=== PATIENT | male | born 2000 | race Caucasian/White ===

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

== ENCOUNTER 2019-10-05 13:06 | Emergency (ER) | payer BC, SELFPAY ==
--- NOTE | 2019-10-05 14:03 | EDPHYS ---
Physician Documentation [facility] Name: Michael Sharif Age: 19 yrs Sex: Male : 2000 Arrival Date: 10/05/2019 Time: 13:08 Bed 13 Private MD: Simona Walker ED Physician Marin De Leon HPI: 10/04 13:55 This 19 yrs old Male presents to ER via Ambulatory with complaints of rina Nausea/Vomiting, lightheaded. 13:55 The patient presents to the emergency department with nausea, vomiting, that is rina intermittent. Onset: The symptoms/episode began/occurred this morning. Possible causes: unknown. The symptoms are aggravated by nothing. The symptoms are alleviated by nothing. 13:55 The patient presents with pain, that is acute. The complaints affect the left ear. rina Modifying factors: The symptoms are alleviated by nothing, the symptoms are aggravated by nothing. Associated signs and symptoms: The patient has no apparent associated signs or symptoms. Severity of symptoms: At their worst the symptoms were mild in the emergency department the symptoms have improved moderately. The patient has experienced similar episodes in the past, a few times. Historical: - Allergies: 13:28 No Known Allergies; ss - Home Meds: 13:28 None [Active]; ss - PMHx: 13:28 None; ss - PSHx: 13:28 None; ss - Immunization history:: Adult Immunizations up to date. - Social history:: Smoking status: Patient denies any tobacco usage or history of. - Family history:: not pertinent. ROS: 13:55 Constitutional: Negative for fever, chills, and weight loss, Eyes: Negative for injury, rina pain, redness, and discharge, Neck: Negative for injury, pain, and swelling, Cardiovascular: Negative for chest pain, palpitations, and edema, Respiratory: Negative for shortness of breath, cough, wheezing, and pleuritic chest pain. 13:55 Back: Negative for injury and pain, : Negative for injury, bleeding, discharge, and swelling, MS/Extremity: Negative for injury and deformity, Skin: Negative for injury, rash, and discoloration, Neuro: Negative for headache, weakness, numbness, tingling, and seizure, Psych: Negative for depression, anxiety, suicide ideation, homicidal ideation, and hallucinations, Allergy/Immunology: Negative for hives, rash, and allergies, Endocrine: Negative for neck swelling, polydipsia, polyuria, polyphagia, and marked weight changes, Hematologic/Lymphatic: Negative for swollen nodes, abnormal bleeding, and unusual bruising. 13:55 ENT: Positive for ear pain. 13:55 Abdomen/GI: Positive for nausea and vomiting. Exam: 13:55 Constitutional: This is a well developed, well nourished patient who is awake, alert, rina and in no acute distress. Head/Face: Normocephalic, atraumatic. Eyes: Pupils equal round and reactive to light, extra-ocular motions intact. Lids and lashes normal. Conjunctiva and sclera are non-icteric and not injected. Cornea within normal limits. Periorbital areas with no swelling, redness, or edema. ENT: Nares patent. No nasal discharge, no septal abnormalities noted. Tympanic membranes are normal and external auditory canals are clear. Oropharynx with no redness, swelling, or masses, exudates, or evidence of obstruction, uvula midline. Mucous membranes moist. Neck: Trachea midline, no thyromegaly or masses palpated, and no cervical lymphadenopathy. Supple, full range of motion without nuchal rigidity, or vertebral point tenderness. No Meningismus. Chest/axilla: Normal chest wall appearance and motion. Nontender with no deformity. No lesions are appreciated. Cardiovascular: Regular rate and rhythm with a normal S1 and S2. No gallops, murmurs, or rubs. Normal PMI, no JVD. No pulse deficits. Respiratory: Lungs have equal breath sounds bilaterally, clear to auscultation and percussion. No rales, rhonchi or wheezes noted. No increased work of breathing, no retractions or nasal flaring. Abdomen/GI: Soft, non-tender, with normal bowel sounds. No distension or tympany. No guarding or rebound. No evidence of tenderness throughout. Back: No spinal tenderness. No costovertebral tenderness. Full range of motion. Skin: Warm, dry with normal turgor. Normal color with no rashes, no lesions, and no evidence of cellulitis. MS/ Extremity: Pulses equal, no cyanosis. Neurovascular intact. Full, normal range of motion. Neuro: Awake and alert, GCS 15, oriented to person, place, time, and situation. Cranial nerves II-XII grossly intact. Motor strength 5/5 in all extremities. Sensory grossly intact. Cerebellar exam normal. Normal gait. Psych: Awake, alert, with orientation to person, place and time. Behavior, mood, and affect are within normal limits. 13:55 ENT: TM's: bulging, is not appreciated, dullness, on the left, erythema, is not appreciated, fluid levels, is not appreciated, hemotympanum, is not appreciated, loss of bony landmarks, is not appreciated. 13:55 Neck: ROM/movement: is normal, no acute changes, pain, is not appreciated, limited range of motion, is not appreciated. Vital Signs: 13:25 BP 129 / 78; Pulse 87; Resp 17; Temp 98.2(TE); Pulse Ox 100% on R/A; Height 5 ft. 9 in. ss (175.26 cm); Pain 6/10; MDM: 13:35 Patient medically screened. rina 13:59 Differential diagnosis: otitis media, otitis externa, ruptured TM, foreign body, acute rina otalgia, cerumen impaction, Nonspecific abd pain, gastritis, viral gastroenteritis, gastroenteritis. Data reviewed: vital signs, nurses notes. Data interpreted: library monitor: not applicable for this patient encounter. Pulse oximetry: on room air is 100 %. Test interpretation: by ED physician or midlevel provider: not applicable. Counseling: I had a detailed discussion with the patient and/or guardian regarding: the historical points, exam findings, and any diagnostic results supporting the discharge/admit diagnosis, the need for outpatient follow up. ED course: non toxic, feeling better, will give 2 days off, zofran odt given, return if sym increase or persist. Administered Medications: No medications were administered Disposition: 10/05/19 14:02 Discharged to Home. Impression: Vomiting. - Condition is Stable. - Discharge Instructions: Nausea and Vomiting, Adult, Nausea and Vomiting, Adult, [id number]. - Prescriptions for Zofran 4 mg Oral Tablet - take 1 tablet by ORAL route every 12 hours As needed; 20 tablet. - Work release form, Medication Reconciliation Form, Thank You Letter, Antibiotic Education, Prescription Opioid Use form. - Follow up: Simona Walker MD; When: 2 - 3 days; Reason: Recheck today's complaints, Continuance of care, Re-evaluation by your physician. Follow up: Private Physician; When: 2 - 3 days; Reason: Recheck today's complaints, Re-evaluation by your physician. - Problem is new. - Symptoms have improved. Signatures: Marin De Leon MD MD cha Smirch, Shelby, RN RN Snow Eller RN RN vc Corrections: (The following items were deleted from the chart) 14:22 14:02 10/05/2019 14:02 Discharged to Home. Impression: Vomiting. Condition is Stable. vc Forms are Medication Reconciliation Form, Thank You Letter, Antibiotic Education, Prescription Opioid Use. Follow up: Simona Walker; When: 2 - 3 days; Reason: Recheck today's complaints, Continuance of care, Re-evaluation by your physician. Follow up: Private Physician; When: 2 - 3 days; Reason: Recheck today's complaints, Re-evaluation by your physician. Problem is new. Symptoms have improved. rina
--- NOTE | 2019-10-05 14:03 | ER ---
Nurse's Notes [facility] Name: Michael Sharif Age: 19 yrs Sex: Male : 2000 Arrival Date: 10/05/2019 Time: 13:08 Bed 13 Private MD: Simona Walker Diagnosis: Vomiting Presentation: 10/04 13:25 Chief complaint: Patient states: "I woke up feeling like crap. I had a headache. My ss stomach was hurting. I'm nauseous. I also feel like I have an earache. I tried calling into work, but they said they were short handed and I needed to come in anyway." Pt reports he feels better, but he still has a headache and needs a work note to return to work. Coronavirus screen: Patient denies a cough. Patient denies shortness of breath or difficulty breathing. Patient denies measured and/or subjective temperature greater than 100.4F prior to today's visit. Patient denies travel on a cruise ship or to a country the [facility] currently lists as an affected area. Patient denies contact with known and/or suspected case of COVID-19. Ebola Screen: Patient denies exposure to infectious person. Patient denies travel to an Ebola-affected area in the 21 days before illness onset. Initial Sepsis Screen: Does the patient meet any 2 criteria? No. Patient's initial sepsis screen is negative. Does the patient have a suspected source of infection? No. Patient's initial sepsis screen is negative. Risk Assessment: Do you want to hurt yourself or someone else? Patient reports no desire to harm self or others. Onset of symptoms was October 05, 2019. 13:25 Method Of Arrival: Ambulatory ss 13:25 Acuity: ROSALIND 4 ss Triage Assessment: 14:04 General: Appears in no apparent distress. Behavior is calm, cooperative, appropriate vc for age. Pain: Complains of pain in left ear. GI: Reports nausea, vomiting. Historical: - Allergies: 13:28 No Known Allergies; ss - Home Meds: 13:28 None [Active]; ss - PMHx: 13:28 None; ss - PSHx: 13:28 None; ss - Immunization history:: Adult Immunizations up to date. - Social history:: Smoking status: Patient denies any tobacco usage or history of. - Family history:: not pertinent. Screenin:49 Abuse screen: Denies threats or abuse. Nutritional screening: No deficits noted. ll1 Tuberculosis screening: No symptoms or risk factors identified. Fall Risk None identified. Assessment: 14:06 GI: Abdomen is flat, non-distended. vc 14:06 General: Appears in no apparent distress. Behavior is calm, cooperative, appropriate vc for age. Pain: Complains of pain in left ear. Neuro: Level of Consciousness is awake, alert, obeys commands, Oriented to person, place, time, situation. Cardiovascular: Patient's skin is warm and dry. Respiratory: Airway is patent Respiratory effort is even, unlabored, Respiratory pattern is regular, symmetrical. : No deficits noted. No signs and/or symptoms were reported regarding the genitourinary system. EENT: Reports pain in left ear. Vital Signs: 13:25 BP 129 / 78; Pulse 87; Resp 17; Temp 98.2(TE); Pulse Ox 100% on R/A; Height 5 ft. 9 in. ss (175.26 cm); Pain 6/10; ED Course: 13:08 Patient arrived in ED. am2 13:09 Simona Walker MD is Private Physician. am2 13:27 Triage completed. ss 13:28 Arm band placed on right wrist. ss 13:35 Marin De Leon MD is Attending Physician. [facility] 13:49 Patient has correct armband on for positive identification. Bed in low position. Call ll1 light in reach. Side rails up X 1. 13:59 Kia Ozuna, RONALDO is Primary Nurse. ll1 14:02 Simona Walker MD is Referral Physician. rina 14:05 No provider procedures requiring assistance completed. Patient did not have IV access vc during this emergency room visit. Administered Medications: No medications were administered Outcome: 14:02 Discharge ordered by . rina 14:22 Discharged to home ambulatory. vc 14:22 Condition: good 14:22 Discharge instructions given to patient, Instructed on discharge instructions, follow up and referral plans. medication usage, Demonstrated understanding of instructions, follow-up care, medications, Prescriptions given X 1. 14:22 Patient left the ED. vc Signatures: Marin De Leon MD MD cha Smirch, Shelby, RN RN Octavia Rubio am2 Snow Garcia RN RN vc Kia Ozuna, RN RN ll1
[2019-10-05 14:28] VITALS: BP 129/78; TEMP 98.2; O2SAT 100
== END 2019-10-05 14:22 | disposition home or self-care (01) ==
LOC: ER 13:06
DX: R11.10 Vomiting, unspecified (principal)
CPT/HCPCS: 99282

== ENCOUNTER 2024-05-26 18:34 | Inpatient (IN) | payer SELFPAY ==
[2024-05-26] MEDS ORDERED: KETOROLAC 30 MG/ML INJ ONE (19:30)
[2024-05-26] MEDS ORDERED: FAMOTIDINE 20 MG/2 ML VIAL IV ONE (19:30)
[2024-05-26] MEDS ORDERED: ONDANSETRON 4 MG/2 ML VIAL ONE (19:30)
[2024-05-26] MEDS ORDERED: NA CHLORIDE 0.9% 1,000 ML ONE (19:31)
[2024-05-26 19:37] LABS: Absolute Basophils 0.1 K/uL (0-0.5); Absolute Lymphocytes (CBC) 1.3 K/uL (0.7-4.9); Absolute Monocytes 1.3 K/uL (0.1-1.3); Absolute Neutrophil 13.4 K/uL (1.8-8.0); Basophils % 0.5 % (0-1.3); Eosinophils % 0.2 % (0-4.4); Hematocrit 50.3 % (39.6-49.0); Hemoglobin 16.5 g/dL (13.6-17.9); Lymphocytes % 8.1 % (15.3-44.8); MCH 28.5 pg (27.0-35.0); MCHC 32.9 g/dL (32.0-36.0); MCV 86.6 fL (80-100); Monocytes % 8.1 % (3.3-12.3); Neutrophils % 83.1 % (41.7-73.7); Nucleated Red Blood Cells % 0.1 % (0-0); Platelets 259 thou/uL (152-406); RBC Red Blood Cell Count 5.81 M/uL (4.33-5.43); Red Cell Distribution Width 15.5 % (12.1-15.2)
[2024-05-26 19:52] LABS: Albumin 4.7 g/dL (3.4-5.0); Anion Gap 7.9 mEq/L (5.0-15.0); Bilirubin Total 1.2 mg/dL (0.2-1.0); Globulin 4.5 g/dL (2.3-3.5); Potassium 3.9 mEq/L (3.5-5.1); Protein, Total 9.2 g/dL (6.4-8.2)
--- NOTE | 2024-05-26 20:22 | RAD REPORT ---
EXAMINATION: CT ABDOMEN AND PELVIS WITH CONTRAST CLINICAL INDICATION: Male, 24 years old.ABD PAIN TECHNIQUE: CT abdomen and pelvis was performed, after the administration of IV contrast, [facility]. Axial, sagittal and coronal reconstructions were obtained. One or more of the following dose reduction techniques were used: Automated exposure control, adjustment of the mA and/o r kV according to patient size, and/or iterative reconstruction. Unless otherwise specified, incidental findings do not require dedicated imaging follow-up. [id number]. COMPARISON: No prior exam. FINDINGS: LOWER CHEST: No acute process identified.No significant pericardial effusion. UPPER GI: No significant abnormality. LIVER: Hepatic steatosis, but otherwise unremarkable. GALLBLADDER/BILE DUCTS: Distended gallbladder with pericholecystic edema or gallbladder wall thickeni ng.?The common bile duct measures 7 mm which is mildly dilated in PANCREAS: No mass, ductal dilation, or aleksandr-pancreatic fluid. SPLEEN: Unremarkable. ADRENALS: No adrenal masses. KIDNEYS AND URETERS: No hydronephrosis.Low density and/or too small to characterize renal lesions whi ch are statistically benign. ABDOMINAL AORTA AND OTHER VESSELS: Normal caliber aorta and IVC. PERITONEUM: No abnormal free fluid. No free air. LYMPH NODES: No pathologic lymphadenopathy. ABDOMINAL WALL: Unremarkable SMALL BOWEL/COLON: Small bowel has normal course and caliber. No colonic wall thickening or pericolon ic inflammatory changes.Normal appendix. URINARY BLADDER: Underdistended but grossly unremarkable. REPRODUCTIVE ORGANS: No pathologic process. MUSCULOSKELETAL: No acute or suspicious osseous abnormality. ADDITIONAL FINDINGS: None. IMPRESSION: Distended gallbladder with wall thickening and pericholecystic edema concerning for acute cholecystit is.
--- NOTE | 2024-05-26 21:20 | RAD REPORT ---
Abdomen Exam Limited: 05/26/2024 8:42 PM CLINICAL HISTORY: ABD PAIN STUDY: Limited right upper quadrant ultrasound of abdomen. COMPARISON: Same day CT FINDINGS: Liver: Within normal limits. Bile ducts: Mild extrahepatic biliary duct dilatation. Common bile duct measures 6 mm. Gallbladder: Distended gallbladder with stones present. The gallbladder wall is within normal limits. Trace pericholecystic fluid. Identified at the fundus. Sonographic Solano's sign not reported. IMPRESSION: Distended gallbladder with cholelithiasis and trace pericholecystic fluid but no gallbladder wall thi ckening. No sonographic Solano sign reported. The findings are equivocal for early/mild acute cholecystitis. Correlate clinically. Note that the common bile duct measures 6 mm which is mildly dil ated.
--- NOTE | 2024-05-26 21:30 | ER ---
Nurse's Notes [facility] Name: Michael Sharif Age: 24 yrs Sex: Male : 2000 Arrival Date: 05/26/2024 Time: 18:34 Bed 17 Private MD: Diagnosis: Acute cholecystitis;Other cholelithiasis without obstruction Presentation: 05/26 18:50 Chief complaint: Patient states: epigastric pain since yesterday, nausea, no vomiting. tm6 Coronavirus screen: Client denies travel out of the [place] in the last 14 days. Ebola Screen: Patient negative for fever greater than or equal to 101.5 degrees Fahrenheit, and additional compatible Ebola Virus Disease symptoms Patient denies exposure to infectious person. Patient denies travel to an Ebola-affected area in the 21 days before illness onset. No symptoms or risks identified at this time. Initial Sepsis Screen: Does the patient meet any 2 criteria? No. Patient's initial sepsis screen is negative. Does the patient have a suspected source of infection?. Risk Assessment: Do you want to hurt yourself or someone else? Patient reports no desire to harm self or others. Onset of symptoms was May 25, 2024. 18:50 Method Of Arrival: Ambulatory tm6 18:50 Acuity: ROSALIND 3 tm6 Triage Assessment: 18:53 General: Appears uncomfortable, Behavior is calm, cooperative. Pain: Complains of pain tm6 in epigastric area Pain currently is 7 out of 10 on a pain scale. EENT: No signs and/or symptoms were reported regarding the EENT system. Neuro: Level of Consciousness is awake, alert, obeys commands, Oriented to person, place, time, situation. Cardiovascular: Patient's skin is warm and dry. Respiratory: Airway is patent Respiratory effort is even, unlabored, Respiratory pattern is regular, symmetrical. GI: Abdomen is flat, non-distended, Reports epigastric pain, nausea. : No signs and/or symptoms were reported regarding the genitourinary system. Derm: No signs and/or symptoms reported regarding the dermatologic system. Musculoskeletal: No signs and/or symptoms reported regarding the musculoskeletal system. Historical: - Allergies: 18:53 No Known Allergies; tm6 - PMHx: 18:53 None; tm6 - PSHx: 18:53 None; tm6 - Immunization history:: Flu vaccine is not up to date. - Infectious Disease History:: Denies. - Social history:: Smoking status: Patient denies any tobacco usage or history of. Screenin:56 [facility] ED Fall Risk Assessment (Adult) History of falling in the last 3 months, br2 including since admission No falls in past 3 months (0 pts) Confusion or Disorientation No (0 pts) Intoxicated or Sedated No (0 pts) Impaired Gait No (0 pts) Mobility Assist Device Used No (0 pt) Altered Elimination No (0 pt) Score/Fall Risk Level 0 - 2 = Low Risk Oriented to surroundings. Abuse screen: Denies threats or abuse. Denies injuries from another. Nutritional screening: No deficits noted. Tuberculosis screening: No symptoms or risk factors identified. Assessment: 21:56 Reassessment: Patient and/or family updated on plan of care and expected duration. Pain br2 level reassessed. Patient is alert, oriented x 3, equal unlabored respirations, skin warm/dry/pink. General: Appears in no apparent distress. comfortable, Behavior is calm, cooperative. Pain: Complains of pain in chest Pain does not radiate. Pain currently is 9 out of 10 on a pain scale. Neuro: [place] Agitation-Sedation Scale (RASS): 0 - Alert and Calm Level of Consciousness is awake, alert, obeys commands, Oriented to person, place, time, situation. Cardiovascular: Capillary refill < 3 seconds Chest pain is located in epigastric area. 21:56 GI: Abdomen is flat, non-distended, Bowel sounds present X 4 quads. Abd is soft and non br2 tender Reports diarrhea, epigastric pain, nausea, Patient currently denies vomiting. Vital Signs: 18:50 Temp 98.2(O); Weight 92.53 kg; Height 5 ft. 6 in. ; Pain 7/10; tm6 18:50 BP 145 / 90; Pulse 54; Resp 19; Pulse Ox 99% on R/A; MAP 108 mmHg; tm6 22:00 BP 123 / 62; Pulse 66; Resp 18; Pulse Ox 98% on R/A; Pain 9/10; br2 18:50 Body Mass Index 32.93 (92.53 kg, 167.64 cm) tm6 18:50 Pain Scale: Adult tm6 22:00 Pain Scale: Adult br2 ED Course: 18:39 Patient arrived in ED. mr 18:43 Mae Wayne, [facility] kb 18:43 Daniel Liz MD is Attending Physician. kb 18:53 Triage completed. tm6 18:53 Arm band placed on left wrist. tm6 19:23 Initial lab(s) drawn, by me, sent to lab. Inserted saline lock: 20 gauge in left vk antecubital area, using aseptic technique. Blood collected. Flushed with 10 mL NS. 19:24 CBC with Diff Sent. vk 19:24 CMP Sent. vk 19:24 Lipase Sent. vk 20:09 CT Abd/Pelvis - IV Contrast Only In Process Unspecified. EDMS 21:05 US Abdomen Limited In Process Unspecified. EDMS 21:29 Jayden Samaniego MD is Hospitalizing Provider. kb 21:48 Lacie Garcia RN is Primary Nurse. br2 21:56 Patient has correct armband on for positive identification. Placed in gown. Bed in low br2 position. Call light in reach. Side rails up X 1. Provided Education on: plan of care. 05/27 01:00 No provider procedures requiring assistance completed. rg5 01:00 Patient admitted, IV remains in place. intact. rg5 Administered Medications: 05/26 19:35 Drug: Famotidine IVP 20 mg IVP once; dilute with 10 mL 0.9% NaCl; give over 2 minutes tm6 Route: IVP; Site: left antecubital; 05/27 02:33 Follow up: Response: No adverse reaction rg5 05/26 19:36 Drug: TORadol - Ketorolac IVP 15 mg IVP once Route: IVP; Site: left antecubital; tm6 20:00 Follow up: Response: No adverse reaction; Pain is decreased rg5 19:36 Drug: Ondansetron IVP 4 mg IVP once; over 2 minutes Route: IVP; Site: left antecubital; tm6 05/27 02:33 Follow up: Response: No adverse reaction rg5 05/26 19:36 Drug: NS 0.9% IV 1000 ml IV at 1 bolus Per protocol; to be given as a bolus over 60 tm6 minutes Route: IV; Rate: 1 bolus; Site: left antecubital; 20:35 Follow up: IV Status: Completed infusion; IV Intake: 1000ml rg5 22:13 Drug: Piperacillin-Tazobactam IVPB 3.375 grams IVPB once over 60 mins; (mix in NS 100 br2 mL) Route: IVPB; Infused Over: 60 mins; Site: left antecubital; 23:00 Follow up: IV Status: Completed infusion; IV Intake: 100ml rg5 Medication: 21:56 VIS not applicable for this client. br2 Intake: 20:35 IV: 1000ml; Total: 1000ml. rg5 23:00 IV: 100ml; Total: 1100ml. rg5 Outcome: 21:29 Decision to Hospitalize by Provider. kb 05/27 03:46 Admitted to ER Hold. Please see [facility] for further documentation. rg5 Condition: stable Instructed on the need for admit, 12:05 Patient left the ED. cm10 Signatures: Dispatcher [employer] EDMS Mae Wayne, VACUUM CLEANER REPAIRER-C VACUUM CLEANER REPAIRER-Ckb Sofy Coleman, Reg Reg mr Aranza Rosales, RN RN cm10 Yesenia Madrid RN RN 6 Shalini Echeverria Rommel, RN RN rg5 Lacie Garcia, RN RN br2
--- NOTE | 2024-05-26 21:30 | EDPHYS ---
Physician Documentation [facility] Name: Michael Sharif Age: 24 yrs Sex: Male : 2000 Arrival Date: 05/26/2024 Time: 18:34 Bed 17 Private MD: ED Physician Daniel Liz HPI: 05/26 23:21 This 24 yrs old Male presents to ER via Ambulatory with complaints of Abdominal Pain. kb 23:21 Pt is a 24 year old male who presents for nausea, diarrhea, upper abd pain that started kb yesterday. States he has had similar pain in the past and was given bentyl and ibuprofen but it isn't helping this time. No aggravating or alleviating factors. Denies fever. Historical: - Allergies: 18:53 No Known Allergies; tm6 - PMHx: 18:53 None; tm6 - PSHx: 18:53 None; tm6 - Immunization history:: Flu vaccine is not up to date. - Infectious Disease History:: Denies. - Social history:: Smoking status: Patient denies any tobacco usage or history of. ROS: 23:19 Constitutional: As per HPI kb Exam: 23:19 Constitutional: This is a well developed, well nourished patient who is awake, alert, kb and in no acute distress. Head/Face: Normocephalic, atraumatic. ENT: Moist Mucous membranes Cardiovascular: Regular rate Respiratory: Respirations even and unlabored. No increased work of breathing. Talking in full sentences Skin: Warm, dry with normal turgor. Normal color. MS/ Extremity: Pulses equal, no cyanosis. Neurovascular intact. Full, normal range of motion. Neuro: Awake and alert, GCS 15, oriented to person, place, time, and situation. 23:19 Abdomen/GI: Inspection: abdomen appears normal, Bowel sounds: normal, Palpation: soft, in all quadrants, mild abdominal tenderness, in the epigastric area, Vital Signs: 18:50 Temp 98.2(O); Weight 92.53 kg; Height 5 ft. 6 in. ; Pain 7/10; tm6 18:50 BP 145 / 90; Pulse 54; Resp 19; Pulse Ox 99% on R/A; MAP 108 mmHg; tm6 22:00 BP 123 / 62; Pulse 66; Resp 18; Pulse Ox 98% on R/A; Pain 9/10; br2 18:50 Body Mass Index 32.93 (92.53 kg, 167.64 cm) tm6 18:50 Pain Scale: Adult tm6 22:00 Pain Scale: Adult br2 MDM: 18:43 Medical Screening Exam initiated kb 21:29 Data reviewed: vital signs, nurses notes. kb 23:19 Differential diagnosis: cholecystitis, Cholelithiasis, non-specific abd pain, kb pancreatitis. Consideration of Admission/Observation Patient was admitted/placed on observation. Escalation of care including admission/observation considered. Management of patient was discussed with the following: Hospitalist: Dr Samaniego accepts pt for admission. Erector Operator: Dr Rosales accepts pt for consult. Wants NPO and MRCP in AM. Counseling: I had a detailed discussion with the patient and/or guardian regarding the historical points, exam findings, and any diagnostic results supporting the discharge/admit diagnosis, lab results, radiology results, the need for further work-up and treatment in the hospital. 05/26 18:51 Order name: CBC with Diff; Complete Time: 19:38 kb 05/26 18:51 Order name: CMP; Complete Time: 19:54 kb 05/26 18:51 Order name: Lipase; Complete Time: 19:54 kb 05/26 22:42 Order name: CBC with Automated Diff [facility] 05/26 22:42 Order name: CBC with Automated Diff [facility] 05/26 22:42 Order name: Comprehensive Metabolic Panel [facility] 05/26 22:42 Order name: Comprehensive Metabolic Panel [facility] 05/26 18:51 Order name: CT Abd/Pelvis - IV Contrast Only; Complete Time: 20:24 kb 05/26 20:27 Order name: US Abdomen Limited; Complete Time: 21:22 kb 05/27 07:57 Order name: MRI [facility] 05/26 22:42 Order name: CONS Physician Consult [facility] 05/26 18:51 Order name: IV Saline Lock; Complete Time: 19:24 kb 05/26 18:51 Order name: Labs collected and sent; Complete Time: 19:24 kb Administered Medications: 19:35 Drug: Famotidine IVP 20 mg IVP once; dilute with 10 mL 0.9% NaCl; give over 2 minutes tm6 Route: IVP; Site: left antecubital; 05/27 02:33 Follow up: Response: No adverse reaction rg5 12/29 19:36 Drug: TORadol - Ketorolac IVP 15 mg IVP once Route: IVP; Site: left antecubital; tm6 20:00 Follow up: Response: No adverse reaction; Pain is decreased rg5 19:36 Drug: Ondansetron IVP 4 mg IVP once; over 2 minutes Route: IVP; Site: left antecubital; tm6 05/27 02:33 Follow up: Response: No adverse reaction 5 05/26 19:36 Drug: NS 0.9% IV 1000 ml IV at 1 bolus Per protocol; to be given as a bolus over 60 tm6 minutes Route: IV; Rate: 1 bolus; Site: left antecubital; 20:35 Follow up: IV Status: Completed infusion; IV Intake: 1000ml rg5 22:13 Drug: Piperacillin-Tazobactam IVPB 3.375 grams IVPB once over 60 mins; (mix in NS 100 br2 mL) Route: IVPB; Infused Over: 60 mins; Site: left antecubital; 23:00 Follow up: IV Status: Completed infusion; IV Intake: 100ml rg5 Disposition: 05/28 07:01 Co-signature as Attending Physician, Daniel Liz MD I reviewed the patient's care rn provided by the Advanced Practice Provider and agree with the diagnosis and treatment plan. Disposition Summary: 05/26/24 21:29 Hospitalization Ordered Notes: Hospitalization Status: Observation kb Provider: Jayden Samaniego Condition: Stable kb Problem: new kb Symptoms: are unchanged kb Bed/Room Type: Standard kb Location: Telemetry/MedSurg (observation)(05/27/24 11:09) ty Room Assignment: 220(05/27/24 11:09) ty Diagnosis - Acute cholecystitis kb - Other cholelithiasis without obstruction kb Forms: - Medication Reconciliation Form kb - SBAR form kb - Leadership Thank You Letter kb Signatures: Dispatcher [employer] Mae Riojas FNP-C FNP-Daniel Arceo MD MD rn Able, Lacie, RN RN lg3 Yesenia Madrid RN RN tm6 Azar Kimble Belinda, RN RN br2 Kiran Curtis RN rg5 Corrections: (The following items were deleted from the chart) 05/26 18:52 18:52 Abdomen Pelvis W Con+CT.RAD.BRZ ordered. EDMS EDMS : 21:29 Telemetry/MedSurg (observation) kb lg3 : 21:29 kb lg3 05/27 11:09 05/26 23:19 [facility] ER HOLD lg3 ty 05/27 11:05/26 23:19 ERHOLD- lg3 ty
[2024-05-26] MEDS ORDERED: NA CHLORIDE 0.9% 100 ML ONE (22:06)
[2024-05-26] MEDS ORDERED: PIPERACIL/TAZO 3.375 GM VIAL IV ONE (22:07)
--- NOTE | 2024-05-26 22:46 | P.HP ---
Certification for Inpatient With expected LOS: >2 Midnights Patient will require the following post-hospital care: None Practitioner: I am a practitioner with admitting privileges, knowledge of patient current condition, hospital course, and medical plan of care. Services: Services provided to patient in accordance with Admission requirements found in Title 42 Section 412.3 of the Code of Federal Regulations Patient History Date of Service: 05/26/24 Reason for admission: Epigastric pain History of Present Illness: Patient is a 24 years of age. With epigastric pain started last night became worse here in the hospital and was diagnosed with acute cholecystitis had a first episode 3 years ago only had it once he had another episode a week ago also has a history of irritable bowel syndrome he has been to urgent care treated with dicyclomine and Motrin no relief this time and got progressively worse denies any fever or chills Allergies No Known Allergies Allergy (Unverified 05/26/24 22:42) - Past Medical/Surgical History -: Irritable bowel syndrome Past Surgical History: Patient denies surgical history Review of Systems 10-point ROS is otherwise unremarkable Physical Examination - Vital Signs Blood Pressure: 117/61 Pulse: 73 Respirations: 14 Pulse Ox (%): 100 - Physical Exam General: Alert, In no apparent distress, Oriented x3 HEENT: Atraumatic Neck: Supple Respiratory: Clear to auscultation bilaterally Cardiovascular: No edema, Normal pulses Gastrointestinal: Normal bowel sounds, Soft and benign, Non-distended, No tenderness - Studies Laboratory Data (last 24 hrs) 05/26/24 05/26/24 19:21 19:21 WBC 16.10 H Hgb 16.5 Hct 50.3 H Plt Count 259 Sodium 139 Potassium 3.9 BUN 10 Creatinine 1.12 Glucose 117 H Total Bilirubin 1.2 H AST 16 ALT 22 Alkaline Phosphatase 102 Lipase 22 Assessment and Plan - Problems (Diagnosis) (1) Acute cholecystitis Current Visit: Yes Status: Acute Plan: Patient is 24 years of age age admitted with epigastric discomfort ReSound and CAT scan confirmed acute cholecystitis labs otherwise unremarkable vital signs stable white count is elevated will be admitted to the floor will do an MRCP yesterday started on IV antibiotics per general surgery IMPRESSION: Distended gallbladder with cholelithiasis and trace pericholecystic fluid but no gallbladder wall thickening. No sonographic Solano sign reported. The findings are equivocal for early/mild acute cholecystitis. Correlate clinically. Note that the common bile duct measures 6 mm which is mildly dilated. - Advance Directives Does patient have a Living Will: No Does patient have a Durable POA for Healthcare: No
[2024-05-26] MEDS: D5 0.45 NS 1,000 ML IV SCH (23:00)
[2024-05-27] MEDS ORDERED: ONDANSETRON 4 MG/2 ML VIAL ONE (00:40)
[2024-05-27] MEDS ORDERED: MORPHINE 2 MG/ML SYR ONE ×2 (00:40→08:04)
[2024-05-27] MEDS ORDERED: D5 0.45 NS 1,000 ML IV ONE ×2 (00:40→11:46)
[2024-05-27] MEDS: MORPHINE 2 MG/ML SYR IV PRN (00:55)
[2024-05-27] MEDS: ONDANSETRON 4 MG/2 ML VIAL IV PRN (00:58)
[2024-05-27 02:25] VITALS: BMI 32.9
[2024-05-27 05:41] LABS: Absolute Basophils 0.1 K/uL (0-0.5); Absolute Eosinophils 0.1 K/uL (0-0.5); Absolute Lymphocytes (CBC) 1.5 K/uL (0.7-4.9); Absolute Monocytes 1.3 K/uL (0.1-1.3); Absolute Neutrophil 8.3 K/uL (1.8-8.0); Basophils % 0.8 % (0-1.3); Eosinophils % 1.1 % (0-4.4); Hematocrit 42.6 % (39.6-49.0); Hemoglobin 13.8 g/dL (13.6-17.9); Lymphocytes % 13.4 % (15.3-44.8); MCH 28.3 pg (27.0-35.0); MCHC 32.4 g/dL (32.0-36.0); MCV 87.3 fL (80-100); MPV 10.9 fL (7.6-11.3); Monocytes % 11.2 % (3.3-12.3); Neutrophils % 73.5 % (41.7-73.7); Platelets 209 thou/uL (152-406); RBC Red Blood Cell Count 4.88 M/uL (4.33-5.43); Red Cell Distribution Width 15.3 % (12.1-15.2)
[2024-05-27 05:53] LABS: Albumin 3.5 g/dL (3.4-5.0); Anion Gap 8.5 mEq/L (5.0-15.0); Bilirubin Total 1.1 mg/dL (0.2-1.0); Globulin 3.4 g/dL (2.3-3.5); Potassium 3.5 mEq/L (3.5-5.1); Protein, Total 6.9 g/dL (6.4-8.2)
[2024-05-27] MEDS: PIPER TAZO 4.5 GM in NA CHLORIDE 0.9% 100 ML IV SCH ×2 (06:00→12:36)
[2024-05-27] MEDS ORDERED: NA CHLORIDE 0.9% 0 ML ONE (06:02)
[2024-05-27] MEDS ORDERED: PIPERACIL/TAZO 4.5 GM VIAL IV ONE (06:02)
--- NOTE | 2024-05-27 07:57 | RAD REPORT ---
EXAMINATION: MR CHOLANGIOGRAM CLINICAL INDICATION: Male, 24 years old. Cholecystitis TECHNIQUE: Multiplanar, multisequence MR imaging of the abdomen without intravenous contrast, and wit h specific attention to the biliary system. Unless otherwise specified, incidental findings do not require dedicated imaging follow-up. 3D MIP reconstruction performed. COMPARISON: 05/26/2024 FINDINGS: GALLBLADDER: Numerous gallstones noted. Mild gallbladder wall edema and trace pericholecystic fluid. Mild adjacent fluid. BILE DUCTS: No biliary ductal dilatation. LIVER: Normal in size, contour, and signal without evidence of fatty infiltration or iron deposition. No focal lesion. PANCREAS: Normal signal. No mass, ductal dilation, or aleksandr-pancreatic fluid. LYMPH NODES: No lymphadenopathy. ADDITIONAL FINDINGS: None. IMPRESSION: Cholelithiasis with mild fluid surrounding the gallbladder and gallbladder wall edema suggests acute cholecystitis. No common duct stone or pathologic biliary dilatation seen.
--- NOTE | 2024-05-27 08:30 | P.PN ---
Date of Service: 05/27/24 Subjective arrived last pm with significant abdominal pain to epigastrium radiating around upper abd/flank bilaterally Review of Systems 10-point ROS is otherwise unremarkable General: Unremarkable Eyes: Unremarkable ENT: Unremarkable Respiratory: Unremarkable Cardiovascular: Unremarkable Gastrointestinal: Unremarkable Musculoskeletal: Unremarkable Integumentary: Unremarkable Neurological: Unremarkable Lymphatics: Unremarkable Vital signs reviewed Physical Exam General: Alert, Oriented x3, Cooperative, no distress HEENT: Atraumatic, Normocephalic Neck: Supple Respiratory: Clear to auscultation bilaterally, Normal air movement Cardiovascular: No edema, Regular rate/rhythm, Normal S1 S2 Capillary refill: <2 Seconds Gastrointestinal: Soft and benign, without hepatosplenomegaly, negative Solano's Musculoskeletal: No clubbing, No swelling Integumentary: No rashes, No breakdown Neurological: Normal gait, Normal speech, Normal strength at 5/5 x4 extr, Cranial nerves 3-12 intact, Normal affect Lymphatics: No axilla or inguinal lymphadenopathy Assessment and Plan Abdomen limited US IMPRESSION: Distended gallbladder with cholelithiasis and trace pericholecystic fluid but no gallbladder wall thickening. No sonographic Solano sign reported. The findings are equivocal for early/mild acute cholecystitis. Correlate clinically. Note that the common bile duct measures 6 mm which is mildly dilated. - Problems (Diagnosis) (1) Acute cholecystitis Current Visit: Yes Status: Acute Plan: Trend leukocytosis, liver enzymes MRCP shows no biliary ductal dilitation IV antibiotics NPO Pain management SCDs Consult: Dr. Rosales (per overnight) - Advance Directives Does patient have a Living Will: No Does patient have a Durable POA for Healthcare: No <Jacqueline Schwartz - Last Filed: 05/27/24 08:30> Acute calculus cholecystitis clinically and radiologically, patient refused to operation even though multiple doctors explained the necessity of the surgery. No sign of sepsis or cholangitis or peritonitis. Will continue empiric a ntibiotic with Zosyn, pain control, n.p.o., reassess him tomorrow morning. <DANIKA Hummel - Last Filed: 05/27/24 17:44>
[2024-05-27] MEDS ORDERED: SODIUM CHLORIDE 0.9% 10ML INJ IV PRN (14:33)
[2024-05-27] MEDS: METRONIDAZOLE 500mg IVPB 500 MG/100 ML BAG IV SCH (16:17)
--- NOTE | 2024-05-27 16:17 | CON ---
Date of Consultation: 05/27/2024 Reason For Service: Acute cholecystitis, symptomatic cholelithiasis. History Of Present Illness: This is the case of a 24-year-old, who came this morning with epigastric right upper quadrant pain radiating to the back. It was associated with nausea and vomiting that stokes d started last night. He has history of irritable bowel syndrome. 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 He said it was the same at the beginning, but then noticed there was somet mary different. When he came, he was told he had a cholecystitis. Denies any shortness of breath, a ny chest pain, any fever, any recent traveling out of the country. Denies any family member sick at home. Review of Systems: Ten points otherwise unremarkable. Allergies: NONE. Past Medical History: Irritable bowel syndrome. Social History: He does not smoke. He does not drink alcohol. Past Surgical History: None. Family History: Noncontributory. Physical Examination: Vital Signs: Reviewed. General: The patient is awake and alert. HEENT: Pupils are equal and reactive. Anicteric. Neck: Supple. Chest: Clear. Heart: S1, S2. Abdomen: Soft and depressible. There is epigastric right upper quadrant tenderness, but better comp ared to last night, as per patient. No peritonitis present. Pelvic: Deferred. Rectal: Deferred. Extremities: Good capillary refill. Laboratory Data: Blood work shows WBC count of 16.1, hemoglobin of 16.5, platelets of 259, total nadege irubin of 1.2, and alkaline phosphate 102, lipase 22. Ultrasound of the abdomen interpreted by Dr. Lynette hurd as distended gallbladder with cholelithiasis and pericholecystic fluid. Consistent with acute cho lecystitis. CAT scan of the abdomen and pelvis interpreted by Dr. Manuel as distended gallbladder with gallbladder wall thickening, pericholecystic fluid present consistent with acute cholecystitis. MRCP shows cholelithiasis with mild fluid surrounding the gallbladder. No common duct stones or patholog ical biliary dilatation. Assessment: This is a 24-year-old patient with acute cholecystitis, symptomatic cholelithiasis. We offered him options of laparoscopic, possible open cholecystectomy with benefits, alternatives, and r isks including, but not limited to, infection, bleeding, damage to adjacent structures, anesthesia co mplications, choledocholithiasis, bile leak, pancreatitis, [place], and even . He also understands t his may not relieve any symptoms. He might need more than one surgical intervention. After discussi haley pros and cons of surgery, he wants to continue conservative treatment. He has been changing his d iet. He says he has not ate bad in the last few months. It is just 2 days before this happened, he ate some whataburger and hamburgers that this just happened and he is going to try not to do it again and the case that without that, he was doing great. I explained to him the pros and cons of that de cision. This obviously may turn into a worst situation with choledocholithiasis, even more severe in flammation of the gallbladder and the surgery may become more difficult, but I understand also his de sire of treating it conservatively. I discussed that case with the primary doctor to make sure that I explained to him pros and cons of that position. If he decide to continue conservative treatment, he is welcome to come to my office, so we can discuss once again different options. SHALONDA/THANG Voice ID: [id number] Report ID: [id number]
[2024-05-27] MEDS ORDERED: CIPROFLOXACIN 400mg IV 400 MG/200 ML BAG IV SCH (21:00)
[2024-05-27] MEDS: LACTOBACILLUS/ACIDOPHILUS TAB PO SCH (21:23)
[2024-05-28] MEDS: PANTOPRAZOLE 40 MG INJ IVP SCH (08:20)
[2024-05-28 08:35] VITALS: O2SAT 99
--- NOTE | 2024-05-28 13:11 | P.DS ---
Admission Date: 05/26/24 Discharge Date: 05/29/24 Disposition: ROUTINE DISCHARGE Discharge Condition: GOOD Reason for Admission: Epigastric pain Consultations: Dr. Rosales Procedures: declined cholecystectomy Brief History of Present Illness: Patient is a 24 years of age. With epigastric pain started last night became worse here in the hospital and was diagnosed with acute cholecystitis had a first episode 3 years ago only had it once he had another episode a week ago also has a history of irritable bowel syndrome he has been to urgent care treated with dicyclomine and Motrin no relief this time and got progressively worse denies any fever or chills Hospital Course: Mr. Sharif declined surgical intervention for acute cholecystitis. Risks and be nefits of conservative treatment discussed at length. Patient tolerated a clear liquid diet, and then soft diet. States that his pain is decreased today. White blood cell counts trended down. Vital signs stable. Mr. Sharif needs to follow up with Dr. Rosales on an outpatient basis. Vital Signs/Physical Exam: Temp Pulse Resp BP Pulse Ox 97.6 F 82 16 115/75 99 05/28/24 08:00 05/28/24 08:00 05/28/24 08:00 05/28/24 08:00 05/28/24 08:00 General: Alert, In no apparent distress, Oriented x3 HEENT: Atraumatic, Normocephalic Neck: Supple, 2+ carotid pulse no bruit Respiratory: Clear to auscultation bilaterally, Normal air movement Cardiovascular: Normal pulses, Regular rate/rhythm, Normal S1 S2 Capillary refill: <2 Seconds Gastrointestinal: Soft and benign, No tenderness, No guarding, Other (negative Solano's), Hyperactive Musculoskeletal: No clubbing (Negative Solano's), No swelling Integumentary: No rashes, No breakdown Neurological: Normal speech, Normal tone, Normal affect Lymphatics: No axilla or inguinal lymphadenopathy External genitalia: Deferred Rectal: Deferred Laboratory Data at Discharge: WBC 11.30 thou/uL (4.3-10.9) H 05/27/24 05:10 Hgb 13.8 g/dL (13.6-17.9) D 05/27/24 05:10 Hct 42.6 % (39.6-49.0) 05/27/24 05:10 Plt Count 209 thou/uL (152-406) 05/27/24 05:10 Sodium 143 mEq/L (136-145) 05/27/24 05:10 Potassium 3.5 mEq/L (3.5-5.1) 05/27/24 05:10 BUN 8 mg/dL (7-18) 05/27/24 05:10 Creatinine 1.09 mg/dL (0.70-1.30) 05/27/24 05:10 Glucose 129 mg/dL (74-106) H 05/27/24 05:10 Total Bilirubin 1.1 mg/dL (0.2-1.0) H 05/27/24 05:10 AST 16 U/L (15-37) 05/27/24 05:10 ALT 20 U/L (16-61) 05/27/24 05:10 Alkaline Phosphatase 73 U/L (45-117) D 05/27/24 05:10 Lipase 22 U/L (13-75) 05/26/24 19:21 Home Medications: Amox/Clavulanate [Augmentin 875-125 Tab] 875 mg PO BID #14 tab 05/29/24 Dicyclomine [Bentyl] 10 mg FT TIDP PRN #21 cap 05/29/24 Lactobacillus Acidophilus 1 each PO BID #60 cap 05/29/24 New Medications: Amox/Clavulanate [Augmentin 875-125 Tab] 875 mg PO BID #14 tab Dicyclomine [Bentyl] 10 mg FT TIDP PRN #21 cap PRN Reason: Abdominal Pain Lactobacillus Acidophilus 1 each PO BID #60 cap Physician Discharge Instructions: Mr. Sharif declined surgical intervention for acute cholecystitis. Risks and benefits of conservative treatment discussed at length. Patient tolerated a clear liquid diet, and then soft diet. States that his pain is decreased today. White blood cell counts trended down. Vital signs stable. Mr. Sharif needs to follow up with Dr. Rosales on an outpatient basis. He will be discharged home with information on a low fat diet, augmentin 875mg po BID x 7 additional days, Lactobacillus/acidophilus capsules BID, and Bentyl 10mg po TID prn pain Diet: low fat Activity: Ad melody Followup: NONE,NONE [Primary Care Provider] -
--- NOTE | 2024-05-28 18:03 | P.PN ---
Date of Service: 05/28/24 Subjective pt states he is feeling better, pain is only "hunger pains", located lower this am. Will give clear liquids and try full liquids at lunch Review of Systems 10-point ROS is otherwise unremarkable General: Unremarkable Eyes: Unremarkable ENT: Unremarkable Respiratory: Unremarkable Cardiovascular: Unremarkable Gastrointestinal: Unremarkable Musculoskeletal: Unremarkable Integumentary: Unremarkable Neurological: Unremarkable Lymphatics: Unremarkable Vital signs reviewed Physical Exam General: Alert, Oriented x3, Cooperative, no distress HEENT: Atraumatic, Normocephalic Neck: Supple Respiratory: Clear to auscultation bilaterally, Normal air movement Cardiovascular: No edema, Regular rate/rhythm, Normal S1 S2 Capillary refill: <2 Seconds Gastrointestinal: Soft and benign, without hepatosplenomegaly, negative Solano's Musculoskeletal: No clubbing, No swelling Integumentary: No rashes, No breakdown Neurological: Normal gait, Normal speech, Normal strength at 5/5 x4 extr, Cranial nerves 3-12 intact, Normal affect Lymphatics: No axilla or inguinal lymphadenopathy Assessment and Plan Abdomen limited US IMPRESSION: Distended gallbladder with cholelithiasis and trace pericholecystic fluid but no gallbladder wall thickening. No sonographic Solano sign reported. The findings are equivocal for early/mild acute cholecystitis. Correlate clinically. Note that the common bile duct measures 6 mm which is mildly dilated. - Problems (Diagnosis) (1) Acute cholecystitis Current Visit: Yes Status: Acute Plan: Trend leukocytosis, liver enzymes, both decreased 05/28/24 MRCP shows no biliary ductal dilitation IV antibiotics Advance diet Pain management SCDs Consult: Dr. Rosales has evaluated and offered surgery. Pt declined and requests medical conservative management. Discussed discharge today with oral antibiotics and pain medications. Pt will stay and try full liquids for lunch and reassess. - Advance Directives Does patient have a Living Will: No Does patient have a Durable POA for Healthcare: No
[2024-05-28] MEDS: PIPER TAZO 3.375 GM in NA CHLORIDE 0.9% 100 ML IV SCH (19:55)
[2024-05-29 12:31] VITALS: BP 108/61; TEMP 97.8
--- NOTE | 2024-05-29 14:32 | PN ---
Date of Progress Note: 05/29/2024 Diagnoses: Acute cholecystitis, symptomatic cholelithiasis. This is the case of a 24-year-old patient with above diagnoses. He was scheduled for surgery, but he wanted to try conservative treatment with diet and do this electively. The patient is doing better. He is tolerating diet. Pain subsided. No nausea, no vomiting. From the surgical standpoint, we e xplained to him his surgical options, also how to watch for his diet. If this comes back again, we a sked him to please come back to the ER immediately. If the pain does not come, he still needs to com es to my office, so we will go through once again his surgical options to avoid this kind of emergent incident. He understood. ARIADNA Voice ID: [id number] Report ID: [id number]
== END 2024-05-29 12:30 | disposition home or self-care (01) | DRG 446 ==
LOC: ER 18:34 → ERHOLD 22:34 → 2ND 05-27 11:52
PROVIDERS: ADMIT Internal Medicine Sleep Medicine; ATTEND Internal Medicine
DX: K80.00 Calculus of gallbladder with acute cholecystitis without obstruction (principal)
CPT/HCPCS: 36415; 74177; 74181; 76705; 80053; 83690; 85025; 96361; 96365; 96375; 99285; J2270; J2405; J2470; J2543; J7030; J7799; Q9967

== ENCOUNTER 2024-08-30 08:07 | Emergency (ER) | payer SELFPAY ==
[2024-08-30] MEDS ORDERED: ACETAMINOPHEN 325 MG TABLET ONE (08:29)
[2024-08-30] MEDS ORDERED: ONDANSETRON 4 MG/2 ML VIAL ONE (08:29)
[2024-08-30] MEDS ORDERED: MORPHINE 4 MG/ML SYR ONE (08:29)
[2024-08-30] MEDS ORDERED: NA CHLORIDE 0.9% 1,000 ML ONE (08:29)
[2024-08-30 08:46] LABS: Absolute Basophils 0.1 K/uL (0-0.5); Absolute Eosinophils 0.1 K/uL (0-0.5); Absolute Lymphocytes (CBC) 0.9 K/uL (0.7-4.9); Absolute Monocytes 1.2 K/uL (0.1-1.3); Absolute Neutrophil 7.4 K/uL (1.8-8.0); Basophils % 0.6 % (0-1.3); Eosinophils % 0.7 % (0-4.4); Hematocrit 45.6 % (39.6-49.0); Hemoglobin 15.9 g/dL (13.6-17.9); Lymphocytes % 9.6 % (15.3-44.8); MCH 29.3 pg (27.0-35.0); MCHC 34.8 g/dL (32.0-36.0); MCV 84.2 fL (80-100); MPV 10.8 fL (7.6-11.3); Monocytes % 12.5 % (3.3-12.3); Neutrophils % 76.6 % (41.7-73.7); Platelets 174 thou/uL (152-406); RBC Red Blood Cell Count 5.42 M/uL (4.33-5.43); Red Cell Distribution Width 14.8 % (12.1-15.2)
[2024-08-30 09:08] LABS: Albumin/Globulin Ratio 0.9 (1.1-1.8); Anion Gap 8.3 mEq/L (5.0-15.0); Bilirubin Total 7.8 mg/dL (0.2-1.0); Globulin 4.4 g/dL (2.3-3.5); Influenza A Ag Negative; Influenza B Ag Negative; Potassium 3.3 mEq/L (3.5-5.1); Protein, Total 8.4 g/dL (6.4-8.2); SARS-CoV-2 Antigen Rapid Res Negative (Negative)
--- NOTE | 2024-08-30 09:19 | RAD REPORT ---
EXAM: Right upper quadrant ultrasound. CLINICAL HISTORY: RUQ Pain known gallstones;Abd pain COMPARISON: 05/26/2024 FINDINGS: Gallbladder: Several stones noted. Bile ducts: No intrahepatic or extrahepatic biliary dilatation. Common bile duct measures 13 mm. Th is is abnormally dilated. Limited imaging of the liver shows no concerning finding. IMPRESSION: Cholelithiasis. Dilated common duct measuring 13 mm likely indicates choledocholithiasis.
--- NOTE | 2024-08-30 09:50 | ER ---
Nurse's Notes [facility] Name: Michael Sharif Age: 24 yrs Sex: Male : 2000 Arrival Date: 08/30/2024 Time: 08:07 Bed 7 Private MD: Diagnosis: Choledocholithiasis, abdominal pain Presentation: 08/30 08:25 Chief complaint: Patient states: RUQ abd pain x 1 day, runny nose, nausea, body aches. jl7 Coronavirus screen: Client presents with at least one sign or symptom that may indicate coronavirus-19. Ebola Screen: No symptoms or risks identified at this time. Initial Sepsis Screen: Does the patient meet any 2 criteria? No. Patient's initial sepsis screen is negative. Does the patient have a suspected source of infection? No. Patient's initial sepsis screen is negative. Risk Assessment: Do you want to hurt yourself or someone else? Patient reports no desire to harm self or others. Onset of symptoms was August 27, 2024. Care prior to arrival: None. 08:25 Method Of Arrival: Ambulatory [facility] 08:25 Acuity: ROSALIND 3 jl7 Triage Assessment: 08:26 General: Appears in no apparent distress. uncomfortable, Behavior is calm, cooperative, jl7 appropriate for age. Pain: Complains of pain in right upper quadrant. GI: Abdomen is non-distended. Historical: - Allergies: 08:26 No Known Allergies; jl7 - Home Meds: 08:26 None [Active]; jl7 - PMHx: 08:26 cholelithiasis; jl7 - PSHx: 08:26 None; jl7 - Immunization history:: Adult Immunizations unknown. - Infectious Disease History:: Denies. - Social history:: Smoking status: Patient denies any tobacco usage or history of. Screenin:30 [facility] ED Fall Risk Assessment (Adult) History of falling in the last 3 months, aa5 including since admission No falls in past 3 months (0 pts) Confusion or Disorientation No (0 pts) Intoxicated or Sedated No (0 pts) Impaired Gait No (0 pts) Mobility Assist Device Used No (0 pt) Altered Elimination No (0 pt) Score/Fall Risk Level 0 - 2 = Low Risk Oriented to surroundings, Maintained a safe environment, Educated pt \T\ family on fall prevention, incl call for assistance when getting out of bed, Assessed \T\ reinforced patient's understanding of fall precautions. Abuse screen: Denies threats or abuse. Nutritional screening: No deficits noted. Tuberculosis screening: No symptoms or risk factors identified. Assessment: 08:30 General: Appears uncomfortable, Behavior is calm, cooperative, Reports body aches. aa5 Pain: Complains of pain in right upper quadrant Pain currently is 7 out of 10 on a pain scale. Quality of pain is described as sharp, Pain began 1 day ago. Is continuous. Neuro: Level of Consciousness is awake, alert, obeys commands, Oriented to person, place, time, situation. Cardiovascular: Patient's skin is warm and dry. Respiratory: Airway is patent Respiratory effort is even, unlabored, Respiratory pattern is regular, symmetrical. GI: Abdomen is round non-distended, Bowel sounds present X 4 quads. Abd is soft and non tender X 4 quads. Reports nausea. : No signs and/or symptoms were reported regarding the genitourinary system. EENT: Reports nasal discharge that is watery. Derm: Skin is pink, warm \T\ dry. Musculoskeletal: Range of motion: intact in all extremities. 08:48 Reassessment: Patient is alert, oriented x 3, equal unlabored respirations, skin aa5 warm/dry/pink. Pt to US. 09:23 Reassessment: Patient is alert, oriented x 3, equal unlabored respirations, skin aa5 warm/dry/pink. Patient states feeling better. Patient states symptoms have improved. 10:25 Reassessment: Patient is alert, oriented x 3, equal unlabored respirations, skin aa5 warm/dry/pink. Patient states feeling better. 12:00 Reassessment: Pt sleeping . aa5 12:10 Reassessment: Patient is alert, oriented x 3, equal unlabored respirations, skin aa5 warm/dry/pink. 13:05 Reassessment: Patient is alert, oriented x 3, equal unlabored respirations, skin aa5 warm/dry/pink. Vital Signs: 08:25 BP 134 / 79; Pulse 93; Resp 17; Temp 100.1; Pulse Ox 100% ; Weight 90.72 kg; Height 5 jl7 ft. 6 in. ; Pain 7/10; 09:22 BP 123 / 73; Pulse 80; Resp 16 S; Temp 100.1(O); Pulse Ox 100% on R/A; aa5 10:25 BP 115 / 68; Pulse 73; Resp 16 S; Temp 98.7(O); Pulse Ox 99% on R/A; aa5 12:10 BP 118 / 72; Pulse 75; Resp 18 S; Temp 98.5(O); Pulse Ox 99% on R/A; aa5 08:25 Body Mass Index 32.28 (90.72 kg, 167.64 cm) jl7 08:25 Pain Scale: Adult jl7 ED Course: 08:13 Patient arrived in ED. al6 08:15 Amber Brown MD is Attending Physician. sp3 08:20 Millie Rubalcava, RONALDO is Primary Nurse. aa5 08:26 Triage completed. jl7 08:26 Arm band placed on right wrist. jl7 08:30 Patient has correct armband on for positive identification. Bed in low position. Call aa5 light in reach. Side rails up X 1. Adult w/ patient. Pulse ox on. NIBP on. 08:35 Initial lab(s) drawn, by me, sent to lab. COVID swab sent to lab. Inserted saline lock: aa5 20 gauge in left antecubital area, using aseptic technique. Blood collected. Flushed with 10 mL NS. 08:59 Abdomen Limited US In Process Unspecified. EDMS 09:27 No provider procedures requiring assistance completed. aa5 09:48 called and left a message for Dr. Glass to call Dr. Brown for patient consultation. eb 09:55 initiated a transfer with Lupis from the [facility]. eb 11:08 connected the hospitalist chief operations officer for [facility] with Dr. Brown for patient eb transfer consultation. 12:33 administrative approval given by Lupis Rincon Rn/ patient has been accepted to [facility] room 1842/ Dr. Hnuter Murillo has accepted the patient in transfer \[id number]/ report to be called to [phone]. 13:00 Patient transferred, IV remains in place. aa5 Administered Medications: 08:35 Drug: Acetaminophen PO 650 mg PO once Route: PO; aa5 09:22 Follow up: Response: No adverse reaction aa5 08:40 Drug: Ondansetron IVP 4 mg IVP once; over 2 minutes Route: IVP; Site: left antecubital; aa5 08:45 Follow up: Response: No adverse reaction aa5 08:40 Drug: morphine IVP or IV 4 mg IVP once over 4 mins Route: IVP; Infused Over: 4 mins; aa5 Site: left antecubital; 08:45 Follow up: Response: No adverse reaction aa5 08:40 Drug: NS 0.9% IV 1000 ml IV at 1 bolus Per protocol; to be given as a bolus over 60 aa5 minutes Route: IV; Rate: 1 bolus; Site: left antecubital; 09:40 Follow up: IV Status: Completed infusion; IV Intake: 1000ml aa5 10:28 Drug: Piperacillin-Tazobactam IVPB 3.375 grams IVPB once over 60 mins; (mix in NS 100 aa5 mL) Route: IVPB; Infused Over: 60 mins; Site: left antecubital; 11:28 Follow up: Response: No adverse reaction; IV Status: Completed infusion aa5 Medication: 09:23 VIS not applicable for this client. aa5 Intake: 09:40 IV: 1000ml; Total: 1000ml. aa5 Outcome: 09:50 ER care complete, transfer ordered by MD. arnett 13:05 Transferred by ground EMS to [facility], Transfer form completed. aa5 X-rays sent w/ patient. Note: Report given to [facility] 13:05 Condition: stable 13:05 Instructed on the need for transfer, Demonstrated understanding of instructions, 13:08 Patient left the ED. aa5 Signatures: Dispatcher [employer] EDMS Millie Rubalcava RN RN aa5 Yohana Perkins RN RN jl7 Tiffanie Chavarria Setul, MD MD sp3 Deborah Hernandez6 Corrections: (The following items were deleted from the chart) 15:48 13:00 BP 118 / 72; Pulse 75bpm; Resp 18bpm; Spontaneous; Pulse Ox 99% RA; Temp 98.5F aa5 Oral; aa5
--- NOTE | 2024-08-30 09:51 | EDPHYS ---
Physician Documentation [facility] Name: Michael Sharif Age: 24 yrs Sex: Male : 2000 Arrival Date: 08/30/2024 Time: 08:07 Bed 7 Private MD: ED Physician Amber Brown HPI: 08/30 08:28 This 24 yrs old Male presents to ER via Ambulatory with complaints of Abdominal Pain. sp3 08:28 24-year-old male with history of cholelithiasis presents with right upper quadrant sp3 abdominal pain, subjective fever, body aches and vomiting for the last 24 to 48 hours. Denies any headache, neck pain, chest pain, shortness of breath, cough, back pain, dysuria, other urinary symptoms, left-sided abdominal pain, diarrhea or any other signs or symptoms on ROS at this time.. Historical: - Allergies: 08:26 No Known Allergies; jl7 - Home Meds: 08:26 None [Active]; jl7 - PMHx: 08:26 cholelithiasis; jl7 - PSHx: 08:26 None; jl7 - Immunization history:: Adult Immunizations unknown. - Infectious Disease History:: Denies. - Social history:: Smoking status: Patient denies any tobacco usage or history of. ROS: 08:28 Eyes: Negative for injury, pain, redness, and discharge, ENT: Negative for injury, sp3 pain, and discharge, Neck: Negative for injury, pain, and swelling, Cardiovascular: Negative for chest pain, palpitations, and edema, Respiratory: Negative for shortness of breath, cough, wheezing, and pleuritic chest pain, Back: Negative for injury and pain, : Negative for injury, bleeding, discharge, and swelling, Skin: Negative for injury, rash, and discoloration, Neuro: Negative for headache, weakness, numbness, tingling, and seizure, Psych: Negative for depression, anxiety, suicide ideation, homicidal ideation, and hallucinations, Allergy/Immunology: Negative for hives, rash, and allergies, Endocrine: Negative for neck swelling, polydipsia, polyuria, polyphagia, and marked weight changes, 08:28 All other systems are negative, Exam: 08:28 Constitutional: This is a well developed, well nourished patient who is awake, alert, sp3 and in no acute distress. Head/Face: Normocephalic, atraumatic. Eyes: Pupils equal round and reactive to light, extra-ocular motions intact. Lids and lashes normal. Conjunctiva and sclera are non-icteric and not injected. Cornea within normal limits. Periorbital areas with no swelling, redness, or edema. Neck: Trachea midline, no thyromegaly or masses palpated, and no cervical lymphadenopathy. Supple, full range of motion without nuchal rigidity, or vertebral point tenderness. No Meningismus. Chest/axilla: Normal chest wall appearance and motion. Nontender with no deformity. No lesions are appreciated. Cardiovascular: Regular rate and rhythm with a normal S1 and S2. No gallops, murmurs, or rubs. Normal PMI, no JVD. No pulse deficits. Respiratory: Lungs have equal breath sounds bilaterally, clear to auscultation and percussion. No rales, rhonchi or wheezes noted. No increased work of breathing, no retractions or nasal flaring. Back: No spinal tenderness. No costovertebral tenderness. Full range of motion. Skin: Warm, dry with normal turgor. Normal color with no rashes, no lesions, and no evidence of cellulitis. MS/ Extremity: Pulses equal, no cyanosis. Neurovascular intact. Full, normal range of motion. Neuro: Awake and alert, GCS 15, oriented to person, place, time, and situation. Cranial nerves II-XII grossly intact. Motor strength 5/5 in all extremities. Sensory grossly intact. Cerebellar exam normal. Normal gait. Psych: Awake, alert, with orientation to person, place and time. Behavior, mood, and affect are within normal limits. 08:28 Abdomen/GI: Low-grade fever present. Patient also has pain in the right upper quadrant on palpation without peritoneal signs, rebound or guarding. Mildly positive Solano sign on my exam., Vital Signs: 08:25 BP 134 / 79; Pulse 93; Resp 17; Temp 100.1; Pulse Ox 100% ; Weight 90.72 kg; Height 5 jl7 ft. 6 in. ; Pain 7/10; 09:22 BP 123 / 73; Pulse 80; Resp 16 S; Temp 100.1(O); Pulse Ox 100% on R/A; aa5 10:25 BP 115 / 68; Pulse 73; Resp 16 S; Temp 98.7(O); Pulse Ox 99% on R/A; aa5 12:10 BP 118 / 72; Pulse 75; Resp 18 S; Temp 98.5(O); Pulse Ox 99% on R/A; aa5 08:25 Body Mass Index 32.28 (90.72 kg, 167.64 cm) jl7 08:25 Pain Scale: Adult jl7 MDM: 08:15 Medical Screening Exam initiated sp3 08:29 Data reviewed: vital signs, nurses notes, lab test result(s), radiologic studies. ED sp3 course: 24-year-old male with cholelithiasis history that presents with right upper quadrant pain and low-grade fever and bodyaches. Differential diagnosis includes biliary colic, cholecystitis, other biliary pathology, gastritis, pancreatitis, viral illness, COVID-19, influenza, among others. Workup will include general labs, UA, viral swabs and ultrasound of the right upper quadrant. Pain and nausea control as needed along with antipyretics. Disposition pending workup and patient course.. 09:49 ED course: Patient's laboratory values demonstrate elevated total bilirubin, alk phos sp3 and LFTs. Lipase is normal. Common bile duct dilatation on ultrasound at 13 mm consistent with choledocholithiasis. Will administer antibiotics and have patient transferred to [facility] for GI consultation and probable ERCP evaluation.. 11:11 ED course: Discussed with hospitalist at [facility] who has graciously accepted sp3 this patient to [facility].. 08/30 08:26 Order name: CBC with Diff; Complete Time: 09:10 sp3 08/30 08:26 Order name: CMP; Complete Time: 09:10 sp3 08/30 08:26 Order name: Lipase; Complete Time: 09:10 sp3 08/30 08:26 Order name: COVID-19 Ag + Flu A+B Ag; Complete Time: 09:10 sp3 08/30 08:26 Order name: Abdomen Limited US; Complete Time: 09:30 sp3 08/30 08:26 Order name: IV Saline Lock; Complete Time: 08:48 sp3 08/30 08:26 Order name: Labs collected and sent; Complete Time: 08:48 sp3 Administered Medications: 08:35 Drug: Acetaminophen PO 650 mg PO once Route: PO; aa5 09:22 Follow up: Response: No adverse reaction aa5 08:40 Drug: Ondansetron IVP 4 mg IVP once; over 2 minutes Route: IVP; Site: left antecubital; aa5 08:45 Follow up: Response: No adverse reaction aa5 08:40 Drug: morphine IVP or IV 4 mg IVP once over 4 mins Route: IVP; Infused Over: 4 mins; aa5 Site: left antecubital; 08:45 Follow up: Response: No adverse reaction aa5 08:40 Drug: NS 0.9% IV 1000 ml IV at 1 bolus Per protocol; to be given as a bolus over 60 aa5 minutes Route: IV; Rate: 1 bolus; Site: left antecubital; 09:40 Follow up: IV Status: Completed infusion; IV Intake: 1000ml aa5 10:28 Drug: Piperacillin-Tazobactam IVPB 3.375 grams IVPB once over 60 mins; (mix in NS 100 aa5 mL) Route: IVPB; Infused Over: 60 mins; Site: left antecubital; 11:28 Follow up: Response: No adverse reaction; IV Status: Completed infusion aa5 Disposition Summary: 08/30/24 09:50 Transfer Ordered Notes: Transfer Location: [facility] sp3 Reason: Higher level of care sp3 Condition: Stable sp3 Problem: an acute exacerbation sp3 Symptoms: have worsened sp3 Accepting Physician: MELONY Yadav GI(08/30/24 13:08) aa5 Diagnosis - Choledocholithiasis, abdominal pain sp3 Forms: - Medication Reconciliation Form sp3 - SBAR form sp3 Signatures: Dispatcher [employer] EDMS Millie Rubalcava, RN RN aa5 Yohana Perikns RN RN jl7 Amber Brown MD MD sp3 Corrections: (The following items were deleted from the chart) 08:27 08:27 CBC+H.LAB.BRZ ordered. EDMS EDMS 08:27 08:27 COMPREHENSIVE METABOLIC PANEL+C.LAB.BRZ ordered. EDMS EDMS 08:27 08:27 LIPASE+C.LAB.BRZ ordered. EDMS EDMS 08:27 08:27 COVID-19 Ag + Flu A+B Ag+I.LAB.BRZ ordered. EDMS EDMS 08:27 08:27 Abdomen Limited+US.RAD.BRZ ordered. EDMS EDMS 09:[address] [facility] sp3 aa5
[2024-08-30] MEDS ORDERED: PIPERACIL/TAZO 3.375 GM VIAL IV ONE (10:03)
[2024-08-30] MEDS ORDERED: NA CHLORIDE 0.9% 100 ML ONE (10:03)
[2024-08-30 14:28] VITALS: BP 115/68; TEMP 98.7; O2SAT 99
== END 2024-08-30 13:08 | disposition short-term general hospital (02) ==
LOC: ER 08:07
DX: K80.50 Calculus of bile duct without cholangitis or cholecystitis without obstruction (principal)
CPT/HCPCS: 36415; 76705; 80053; 83690; 85025; 87428; 96361; 96365; 96375; 99285; J2405; J2543; J7030